=== PATIENT | female | born 1950 ===

== ENCOUNTER 2019-05-28 21:18 | Observation (INO) ==
[2019-05-28 22:30] LABS: Basophils % 0.6 % (0.0-0.8); Eosinophils # 0.2 10*3/uL (0.0-0.87); Eosinophils % 3.5 % (0.00-10.9); Hematocrit 35.4 VOL% (35.7-47.0); Hemoglobin 12.5 GM/DL (12.0-16.0); Immature Granulocytes % 0.5 %; Immature Granulocytes Absolute 0.03 #; Lymphocytes # 1.9 10*3/uL (1.4-4.0); Lymphocytes % 28.5 % (21.3-54.2); Mean Corpuscular HGB Conc 35.3 GM/DL (32-36); Mean Corpuscular Volume 94.9 FL (87-102); Mean Platelet Volume 10.9 FL (9.6-12.0); Monocytes % 6.9 % (1.7-12.7); Platelet Count 184 T/CUMM (130-400); Red Blood Count 3.73 MC/CUMM (3.8-5.5); Red Cell Distribution Width 12.3 % (9.3-17.3); White Blood Count 6.6 T/CUMM (4-12)
[2019-05-28 22:37] LABS: Bilirubin,Total 0.6 MG/DL (0.2-1.0); Calcium 8.2 MG/DL (8.5-10.1); Osmolality,Calculated 291.8 MOS/KG (273-304)
[2019-05-29 00:46] LABS: Platelet Estimate Normal
[2019-05-29 00:47] LABS: Hypochromasia 1+
[2019-05-29 02:28] LABS: Apearance,Urine CLEAR (Clear); Bilirubin,Urine Negative (Negative); Blood, Urine Negative (Negative); Glucose,Urine (UA) >=500 mg/dL (Negative); Ketones,Urine Negative (Negative); Nitrite,Urine Negative (Negative); Protein,Urine Negative; Squamous Epithelial Cell,Urine Occasional /HPF (0-10); Urine Color Straw (Yellow); Urine Specific Gravity 1.009 (1.001-1.035); Urine Urobilinogen < 2.0 EU/DL (0.2-1.0); WBC,Urine <1 /HPF (0-6)
[2019-05-29] MEDS ORDERED: GLUCAGON 1 MG VIAL IM PRN (02:58)
[2019-05-29] MEDS ORDERED: ACETAMINOPHEN 325 MG TABLET PO PRN (02:58)
[2019-05-29] MEDS ORDERED: DEXTROSE 50% 25 GM/50 ML VIAL IV PRN (02:58)
[2019-05-29] MEDS ORDERED: ONDANSETRON 4 MG/2 ML VIAL IV PRN (02:58)
[2019-05-29] MEDS: SODIUM CHLORIDE 0.9% 1,000 ML IV SCH ×2 (03:15→13:34)
[2019-05-29 05:58] LABS: Basophils % 0.7 % (0.0-0.8); Eosinophils # 0.2 10*3/uL (0.0-0.87); Eosinophils % 3.8 % (0.00-10.9); Hematocrit 32.8 VOL% (35.7-47.0); Hemoglobin 11.4 GM/DL (12.0-16.0); Immature Granulocytes % 0.5 %; Immature Granulocytes Absolute 0.03 #; Lymphocytes # 1.5 10*3/uL (1.4-4.0); Lymphocytes % 26.4 % (21.3-54.2); Mean Corpuscular HGB Conc 34.8 GM/DL (32-36); Mean Platelet Volume 10.8 FL (9.6-12.0); Monocytes % 8.7 % (1.7-12.7); Neutrophils % 59.9 % (38.7-73.9); Platelet Count 164 T/CUMM (130-400); Red Blood Count 3.49 MC/CUMM (3.8-5.5); Red Cell Distribution Width 12.3 % (9.3-17.3); White Blood Count 5.5 T/CUMM (4-12)
[2019-05-29 06:17] LABS: Calcium 8.1 MG/DL (8.5-10.1); Osmolality,Calculated 294.1 MOS/KG (273-304); Thyroid Stimulating Hormone 2.59 uIU/ml (0.358-3.74)
[2019-05-29] MEDS: GEMFIBROZIL 600 MG TABLET PO SCH ×2 (09:32→22:35)
[2019-05-29] MEDS: INSULIN LISPRO 100 UNIT/ML SUBCUT SCH ×6 (09:32→22:36)
[2019-05-29] MEDS: ENOXAPARIN 30 MG/0.3 ML SYRINGE SUBCUT SCH (09:32)
[2019-05-29] MEDS: GLIMEPIRIDE 4 MG TABLET PO SCH (09:32)
[2019-05-29] MEDS: FAMOTIDINE 20 MG TABLET PO SCH ×2 (09:33→22:35)
[2019-05-29] MEDS ORDERED: MAGNESIUM SULF RIDER 2 GM in PREMIX 1 EACH IV PRN (09:41)
[2019-05-29] MEDS ORDERED: MAGNESIUM SULF RIDER 4 GM in PREMIX 1 EACH IV PRN (09:41)
[2019-05-29] MEDS ORDERED: SENNA 8.6 MG TABLET PO PRN (11:28)
[2019-05-29] MEDS ORDERED: INSULIN LISPRO 100 UNIT/ML SUBCUT SCH (11:30)
[2019-05-29] MEDS ORDERED: SODIUM CHLORIDE 0.9% 1,000 ML IV ONE (16:05)
[2019-05-29] MEDS ORDERED: INSULIN GLARGINE 100 UNIT/ML SUBCUT SCH (17:00)
[2019-05-29] MEDS ORDERED: GABAPENTIN 100 MG CAPSULE PO SCH (21:00)
[2019-05-30] MEDS: SODIUM CHLORIDE 0.9% 1,000 ML IV SCH ×2 (00:13→07:54)
[2019-05-30 06:47] LABS: Osmolality,Calculated 286.1 MOS/KG (273-304)
[2019-05-30] MEDS: FAMOTIDINE 20 MG TABLET PO SCH (10:47)
[2019-05-30] MEDS: GLIMEPIRIDE 4 MG TABLET PO SCH (10:48)
[2019-05-30] MEDS: ENOXAPARIN 30 MG/0.3 ML SYRINGE SUBCUT SCH (10:48)
[2019-05-30] MEDS: GEMFIBROZIL 600 MG TABLET PO SCH (10:48)
[2019-05-30] MEDS: INSULIN LISPRO 100 UNIT/ML SUBCUT SCH ×4 (10:54→13:17)
[2019-05-30 16:13] VITALS: BP 123/54
[2019-06-03] MEDS ORDERED: ERGOCALCIFEROL 50,000 UNIT CAPSULE PO SCH (09:00)
== END 2019-05-30 17:08 | disposition home or self-care (01) ==
LOC: EDUNIT# → EDBD → EDSEX → N.ED 21:18 → N.EDINP 21:18 → N.5E 05-29 01:30
PROVIDERS: ADMIT Internal Medicine; ATTEND Internal Medicine

== ENCOUNTER 2020-08-12 08:10 | Inpatient (IN) ==
[2020-08-06 12:24] LABS: Basophils # 0.1 10*3/uL (0.0-0.2); Basophils % 0.7 % (0.0-0.8); Eosinophils # 0.3 10*3/uL (0.0-0.87); Eosinophils % 3.8 % (0.00-10.9); Hematocrit 31.4 VOL% (35.7-47.0); Hemoglobin 10.8 GM/DL (12.0-16.0); Immature Granulocytes % 0.6 %; Immature Granulocytes Absolute 0.05 #; Lymphocytes # 2.9 10*3/uL (1.4-4.0); Lymphocytes % 32.5 % (21.3-54.2); Mean Corpuscular HGB Conc 34.4 GM/DL (32-36); Mean Corpuscular Volume 96.3 FL (87-102); Mean Platelet Volume 10.3 FL (9.6-12.0); Monocytes % 7.6 % (1.7-12.7); Neutrophils % 54.8 % (38.7-73.9); Platelet Count 245 T/CUMM (130-400); Red Blood Count 3.26 MC/CUMM (3.8-5.5); Red Cell Distribution Width 13.7 % (9.3-17.3); White Blood Count 8.9 T/CUMM (4-12)
[2020-08-06 12:34] LABS: PT Patient Result 10.4 SECS (9.8-11.9)
[2020-08-06 12:56] LABS: Bilirubin,Total 0.8 MG/DL (0.2-1.0); Calcium 8.3 MG/DL (8.5-10.1); Osmolality,Calculated 293.3 MOS/KG (273-304); Potassium 3.6 MMOL/L (3.5-5.1); Total Protein 7.2 G/DL (6.4-8.3)
[~2020-08-12 08:10] MED LIST: HEPARIN 5,000 UNIT/1 ML VIAL ONE; LACTATED RINGERS 1,000 ML IV SCH; VANCOMYCIN INJ 1,000 MG in SODIUM CHLORIDE 0.9% 250 ML IV ONE
[2020-08-12] MEDS ORDERED: fentaNYL 250 MCG/5 ML VIAL ONE (08:30)
[2020-08-12] MEDS ORDERED: propofoL 200 MG/20 ML VIAL IV ONE (08:33)
[2020-08-12] MEDS ORDERED: ETOMIDATE 40 MG/20 ML VIAL IV ONE (08:33)
[2020-08-12] MEDS ORDERED: LIDOCAINE 2% 5 ML VIAL ONE (08:34)
[2020-08-12] MEDS ORDERED: ROCURONIUM 50 MG/5 ML VIAL IV ONE (08:34)
[2020-08-12] MEDS ORDERED: PHENYLEPHRINE 10 MG/1 ML VIAL IV ONE (08:36)
[2020-08-12] MEDS ORDERED: HEPARIN 10,000 UNIT/10 ML VIAL ONE (09:52)
[2020-08-12] MEDS ORDERED: NEOSTIGMINE 10 MG/10 ML VIAL ONE (10:22)
[2020-08-12] MEDS ORDERED: GLYCOPYRROLATE 0.4 MG/2 ML VIAL ONE (10:22)
[2020-08-12] MEDS ORDERED: HYDROmorphone 2 MG/1 ML VIAL IV PRN ×2 (11:46→12:11)
[2020-08-12] MEDS ORDERED: ONDANSETRON 4 MG/2 ML VIAL IV PRN ×2 (11:46→12:11)
[2020-08-12] MEDS ORDERED: SENNA 8.6 MG TABLET PO PRN (11:50)
[2020-08-12] MEDS ORDERED: SEVOFLURANE 1 UNIT/15 MINUTE INH ONE (11:57)
[2020-08-12] MEDS: LACTATED RINGERS 1,000 ML IV SCH ×2 (12:28→20:54)
[2020-08-12] MEDS: CALCIUM (CARBONATE) 600 MG TABLET PO SCH (16:50)
[2020-08-12] MEDS ORDERED: GABAPENTIN 600 MG TABLET PO SCH (21:00)
[2020-08-12] MEDS: GABAPENTIN 100 MG CAPSULE PO SCH (21:02)
[2020-08-12] MEDS: gemfibroziL 600 MG TABLET PO SCH (21:02)
[2020-08-12] MEDS: DOCUSATE SODIUM 100 MG CAPSULE PO SCH (21:08)
[2020-08-12] MEDS: FAMOTIDINE 20 MG TABLET PO SCH (21:08)
[2020-08-13] MEDS: ENOXAPARIN 30 MG/0.3 ML SYRINGE SUBCUT SCH ×2 (05:34→17:30)
[2020-08-13 05:55] LABS: Hematocrit 28.6 VOL% (35.7-47.0)
[2020-08-13 06:17] LABS: Calcium 8.8 MG/DL (8.5-10.1); Osmolality,Calculated 290.7 MOS/KG (273-304)
[2020-08-13] MEDS: CLOPIDOGREL 75 MG TABLET PO SCH (08:51)
[2020-08-13] MEDS: DOCUSATE SODIUM 100 MG CAPSULE PO SCH ×2 (08:51→21:16)
[2020-08-13] MEDS: CALCIUM (CARBONATE) 600 MG TABLET PO SCH ×2 (08:51→17:30)
[2020-08-13] MEDS: FAMOTIDINE 20 MG TABLET PO SCH ×2 (08:51→21:16)
[2020-08-13] MEDS: GLIMEPIRIDE 4 MG TABLET PO SCH (08:51)
[2020-08-13] MEDS: gemfibroziL 600 MG TABLET PO SCH ×2 (08:51→21:16)
[2020-08-13] MEDS: ASPIRIN CHEW 81 MG TABLET PO SCH (08:51)
[2020-08-13] MEDS: GABAPENTIN 100 MG CAPSULE PO SCH ×2 (08:52→21:16)
[2020-08-13] MEDS ORDERED: CLOPIDOGREL 75 MG TABLET PO SCH (09:00)
[2020-08-13] MEDS: INSULIN REGULAR 100 UNIT/ML SUBCUT SCH ×3 (11:53→21:17)
[2020-08-14] MEDS: ENOXAPARIN 30 MG/0.3 ML SYRINGE SUBCUT SCH ×2 (05:43→17:42)
[2020-08-14] MEDS: INSULIN REGULAR 100 UNIT/ML SUBCUT SCH ×4 (09:16→20:40)
[2020-08-14] MEDS: GLIMEPIRIDE 4 MG TABLET PO SCH ×2 (09:17→09:25)
[2020-08-14] MEDS: CALCIUM (CARBONATE) 600 MG TABLET PO SCH ×2 (09:18→17:39)
[2020-08-14] MEDS: ASPIRIN CHEW 81 MG TABLET PO SCH (09:18)
[2020-08-14] MEDS: gemfibroziL 600 MG TABLET PO SCH ×2 (09:18→20:41)
[2020-08-14] MEDS: GABAPENTIN 100 MG CAPSULE PO SCH ×2 (09:18→20:41)
[2020-08-14] MEDS: DOCUSATE SODIUM 100 MG CAPSULE PO SCH ×2 (09:18→20:40)
[2020-08-14] MEDS: FAMOTIDINE 20 MG TABLET PO SCH ×2 (09:19→20:40)
[2020-08-14] MEDS: CLOPIDOGREL 75 MG TABLET PO SCH (09:19)
[2020-08-14] MEDS: INSULIN GLARGINE 100 UNIT/ML SUBCUT SCH (17:41)
[2020-08-15] MEDS: ENOXAPARIN 30 MG/0.3 ML SYRINGE SUBCUT SCH ×2 (05:47→17:50)
[2020-08-15] MEDS: INSULIN REGULAR 100 UNIT/ML SUBCUT SCH ×4 (07:21→21:49)
[2020-08-15] MEDS: gemfibroziL 600 MG TABLET PO SCH ×2 (09:19→21:49)
[2020-08-15] MEDS: CALCIUM (CARBONATE) 600 MG TABLET PO SCH ×2 (09:19→17:50)
[2020-08-15] MEDS: DOCUSATE SODIUM 100 MG CAPSULE PO SCH ×2 (09:19→21:49)
[2020-08-15] MEDS: ASPIRIN CHEW 81 MG TABLET PO SCH (09:19)
[2020-08-15] MEDS: GABAPENTIN 100 MG CAPSULE PO SCH ×2 (09:19→21:49)
[2020-08-15] MEDS: GLIMEPIRIDE 4 MG TABLET PO SCH (09:19)
[2020-08-15] MEDS: FAMOTIDINE 20 MG TABLET PO SCH ×2 (09:21→21:49)
[2020-08-15] MEDS: CLOPIDOGREL 75 MG TABLET PO SCH (09:21)
[2020-08-15] MEDS: INSULIN GLARGINE 100 UNIT/ML SUBCUT SCH (17:51)
[2020-08-16] MEDS: ENOXAPARIN 30 MG/0.3 ML SYRINGE SUBCUT SCH ×2 (05:39→17:54)
[2020-08-16] MEDS: INSULIN REGULAR 100 UNIT/ML SUBCUT SCH ×4 (07:29→21:03)
[2020-08-16] MEDS: ASPIRIN CHEW 81 MG TABLET PO SCH (08:58)
[2020-08-16] MEDS: CALCIUM (CARBONATE) 600 MG TABLET PO SCH ×2 (08:58→17:09)
[2020-08-16] MEDS: gemfibroziL 600 MG TABLET PO SCH ×2 (08:58→21:02)
[2020-08-16] MEDS: DOCUSATE SODIUM 100 MG CAPSULE PO SCH ×2 (08:58→21:02)
[2020-08-16] MEDS: FAMOTIDINE 20 MG TABLET PO SCH ×2 (08:59→21:02)
[2020-08-16] MEDS: CLOPIDOGREL 75 MG TABLET PO SCH (08:59)
[2020-08-16] MEDS: GABAPENTIN 100 MG CAPSULE PO SCH ×2 (08:59→21:02)
[2020-08-16] MEDS: GLIMEPIRIDE 4 MG TABLET PO SCH (09:00)
[2020-08-16] MEDS: INSULIN GLARGINE 100 UNIT/ML SUBCUT SCH (17:10)
[2020-08-17] MEDS: ENOXAPARIN 30 MG/0.3 ML SYRINGE SUBCUT SCH (06:20)
[2020-08-17] MEDS: gemfibroziL 600 MG TABLET PO SCH (09:01)
[2020-08-17] MEDS: CLOPIDOGREL 75 MG TABLET PO SCH (09:02)
[2020-08-17] MEDS: DOCUSATE SODIUM 100 MG CAPSULE PO SCH (09:02)
[2020-08-17] MEDS: FAMOTIDINE 20 MG TABLET PO SCH (09:02)
[2020-08-17] MEDS: ASPIRIN CHEW 81 MG TABLET PO SCH (09:02)
[2020-08-17] MEDS: GLIMEPIRIDE 4 MG TABLET PO SCH (09:02)
[2020-08-17] MEDS: GABAPENTIN 100 MG CAPSULE PO SCH (09:02)
[2020-08-17] MEDS: CALCIUM (CARBONATE) 600 MG TABLET PO SCH ×2 (09:02→16:50)
[2020-08-17] MEDS: INSULIN REGULAR 100 UNIT/ML SUBCUT SCH ×3 (09:02→16:15)
[2020-08-17 15:38] VITALS: BP 123/53
[2020-08-17] MEDS: INSULIN GLARGINE 100 UNIT/ML SUBCUT SCH (16:50)
== END 2020-08-17 17:18 | disposition home health service (06) | DRG 253 ==
LOC: N.OR 08:10 → N.SDSINP 08:12 → N.3E 12:46
PROVIDERS: ADMIT Surgery; ATTEND Surgery

== ENCOUNTER 2020-09-18 19:09 | Observation (INO) ==
[2020-09-18] MEDS ORDERED: SODIUM CHLORIDE 0.9% 1,000 ML IV STA (19:59)
[2020-09-18] MEDS ORDERED: GLUCAGON 1 MG VIAL IM PRN (21:49)
[2020-09-18] MEDS ORDERED: ONDANSETRON 4 MG/2 ML VIAL IV PRN (21:49)
[2020-09-18] MEDS ORDERED: DEXTROSE 50% 25 GM/50 ML VIAL IV PRN ×2 (21:49)
[2020-09-18] MEDS ORDERED: ACETAMINOPHEN 325 MG TABLET PO PRN (21:49)
[2020-09-18] MEDS ORDERED: ENOXAPARIN 40 MG/0.4 ML SYRINGE SUBCUT SCH (22:00)
[2020-09-19 06:23] LABS: Basophils % 0.6 % (0.0-0.8); Eosinophils # 0.2 10*3/uL (0.0-0.87); Eosinophils % 3.6 % (0.00-10.9); Hematocrit 30.4 VOL% (35.7-47.0); Hemoglobin 10.4 GM/DL (12.0-16.0); Immature Granulocytes % 0.5 %; Immature Granulocytes Absolute 0.03 #; Lymphocytes # 1.8 10*3/uL (1.4-4.0); Lymphocytes % 27.5 % (21.3-54.2); Mean Corpuscular HGB Conc 34.2 GM/DL (32-36); Mean Corpuscular Volume 96.5 FL (87-102); Mean Platelet Volume 10.2 FL (9.6-12.0); Monocytes % 7.1 % (1.7-12.7); Neutrophils % 60.7 % (38.7-73.9); Platelet Count 207 T/CUMM (130-400); Red Blood Count 3.15 MC/CUMM (3.8-5.5); Red Cell Distribution Width 13.2 % (9.3-17.3); White Blood Count 6.6 T/CUMM (4-12)
[2020-09-19 07:10] LABS: Albumin 2.4 G/DL (3.4-5.0); Bilirubin,Total 0.7 MG/DL (0.2-1.0); Osmolality,Calculated 285.5 MOS/KG (273-304); Potassium 3.6 MMOL/L (3.5-5.1); Total Protein 6.3 G/DL (5.0-7.5)
[2020-09-19] MEDS ORDERED: gemfibroziL 600 MG TABLET PO SCH (07:30)
[2020-09-19] MEDS: INSULIN REGULAR 100 UNIT/ML SUBCUT SCH ×2 (08:40→13:10)
[2020-09-19] MEDS ORDERED: FAMOTIDINE 20 MG TABLET PO SCH (09:00)
[2020-09-19] MEDS ORDERED: CLOPIDOGREL 75 MG TABLET PO SCH (09:00)
[2020-09-19] MEDS ORDERED: GABAPENTIN 100 MG CAPSULE PO SCH (09:00)
[2020-09-19] MEDS ORDERED: CALCIUM CARBONATE CHEW 500 MG TABLET PO SCH (09:00)
[2020-09-19] MEDS ORDERED: PANTOPRAZOLE 40 MG TABLET PO SCH (09:00)
[2020-09-19 11:23] VITALS: BP 140/45
[2020-09-19] MEDS ORDERED: INSULIN GLARGINE 100 UNIT/ML SUBCUT SCH (17:00)
[2020-09-19] MEDS ORDERED: CALCIUM (CARBONATE) 500 MG TABLET PO SCH (21:00)
[2020-09-20] MEDS ORDERED: GLIMEPIRIDE 4 MG TABLET PO SCH (07:30)
== END 2020-09-19 13:10 | disposition home or self-care (01) ==
LOC: EDBD → EDUNIT# → N.EDINP 19:09 → N.ED 19:09 → N.EDINP 23:15 → N.5E 23:29
PROVIDERS: ADMIT Internal Medicine; ATTEND Internal Medicine

== ENCOUNTER 2020-09-24 23:11 | Observation (INO) ==
[2020-09-24 23:56] LABS: Basophils # 0.1 10*3/uL (0.0-0.2); Basophils % 0.8 % (0.0-0.8); Eosinophils # 0.2 10*3/uL (0.0-0.87); Eosinophils % 3.2 % (0.00-10.9); Hematocrit 31.2 VOL% (35.7-47.0); Hemoglobin 10.7 GM/DL (12.0-16.0); Immature Granulocytes % 0.6 %; Immature Granulocytes Absolute 0.04 #; Lymphocytes # 1.3 10*3/uL (1.4-4.0); Lymphocytes % 20.3 % (21.3-54.2); Mean Corpuscular HGB Conc 34.3 GM/DL (32-36); Mean Corpuscular Volume 98.1 FL (87-102); Mean Platelet Volume 10.1 FL (9.6-12.0); Monocytes % 8.6 % (1.7-12.7); Neutrophils % 66.5 % (38.7-73.9); Platelet Count 212 T/CUMM (130-400); Red Blood Count 3.18 MC/CUMM (3.8-5.5); Red Cell Distribution Width 13.4 % (9.3-17.3); White Blood Count 6.6 T/CUMM (4-12)
[2020-09-25 00:09] LABS: PT Patient Result 10.9 SECS (9.8-11.9); Partial Thromboplastin Time 24.5 SECS (23.9-33.8)
[2020-09-25 00:16] LABS: Alanine Aminotransferase 20 U/L (13-56); Alkaline Phosphatase 129 U/L (45-117); Aspartate Amino Transferase 23 U/L (0-37); Bilirubin,Total < 0.39 MG/DL (0.2-1.0); Blood Urea Nitrogen 33 MG/DL (7-18); Calcium 8.1 MG/DL (8.5-10.1); Carbon Dioxide 23 MMOL/L (21-32); Estimated Glom Filtration Rate 13 ML/MIN; Glucose 328 MG/DL (74-106); Sodium 136 MMOL/L (136-145); Total Protein 7.3 G/DL (5.0-7.5)
[2020-09-25] MEDS ORDERED: SODIUM CHLORIDE 0.9% 1,000 ML IV STA (00:20)
[2020-09-25] MEDS ORDERED: DEXTROSE 50% 25 GM/50 ML VIAL IV PRN (01:30)
[2020-09-25] MEDS ORDERED: GLUCAGON 1 MG VIAL IM PRN (01:30)
[2020-09-25] MEDS ORDERED: NICOTINE 21 MG/24 HR PATCH TRANSDERM PRN (01:30)
[2020-09-25] MEDS ORDERED: ONDANSETRON 4 MG/2 ML VIAL IV PRN (01:30)
[2020-09-25] MEDS ORDERED: MORPHINE 4 MG/1 ML VIAL IV PRN (01:30)
[2020-09-25] MEDS: SODIUM CHLORIDE 0.9% 1,000 ML IV SCH ×3 (02:15→17:46)
[2020-09-25] MEDS: INSULIN REGULAR 100 UNIT/ML SUBCUT SCH ×6 (04:04→23:22)
[2020-09-25 06:40] LABS: Basophils % 0.6 % (0.0-0.8); Eosinophils # 0.3 10*3/uL (0.0-0.87); Eosinophils % 4.1 % (0.00-10.9); Hematocrit 31.2 VOL% (35.7-47.0); Hemoglobin 10.5 GM/DL (12.0-16.0); Immature Granulocytes % 0.3 %; Immature Granulocytes Absolute 0.02 #; Lymphocytes % 32.1 % (21.3-54.2); Mean Corpuscular HGB Conc 33.7 GM/DL (32-36); Mean Corpuscular Volume 99.4 FL (87-102); Mean Platelet Volume 10.5 FL (9.6-12.0); Monocytes % 9.1 % (1.7-12.7); Neutrophils % 53.8 % (38.7-73.9); Platelet Count 189 T/CUMM (130-400); Red Blood Count 3.14 MC/CUMM (3.8-5.5); Red Cell Distribution Width 13.3 % (9.3-17.3); White Blood Count 6.2 T/CUMM (4-12)
[2020-09-25 06:59] LABS: Alanine Aminotransferase 19 U/L (13-56); Albumin 2.6 G/DL (3.4-5.0); Alkaline Phosphatase 126 U/L (45-117); Aspartate Amino Transferase 23 U/L (0-37); Bilirubin,Total < 0.39 MG/DL (0.2-1.0); Blood Urea Nitrogen 31 MG/DL (7-18); Calcium 8.4 MG/DL (8.5-10.1); Carbon Dioxide 18 MMOL/L (21-32); Estimated Glom Filtration Rate 16 ML/MIN; Glucose 184 MG/DL (74-106); Osmolality,Calculated 288.5 MOS/KG (273-304); Potassium 3.4 MMOL/L (3.5-5.1); Sodium 139 MMOL/L (136-145); Total Protein 6.6 G/DL (5.0-7.5)
[2020-09-25] MEDS ORDERED: POTASSIUM CHLORIDE 20 MEQ/15 ML UDCUP PO ONE ×2 (08:46→11:00)
[2020-09-25] MEDS ORDERED: CLOPIDOGREL 75 MG TABLET PO SCH (11:00)
[2020-09-25] MEDS ORDERED: GLIMEPIRIDE 4 MG TABLET PO SCH (11:00)
[2020-09-25] MEDS: GABAPENTIN 100 MG CAPSULE PO SCH ×3 (11:18→21:00)
[2020-09-25 13:28] LABS: Bilirubin,Urine Negative (Negative); Blood, Urine Small mg/dL (Negative); Glucose,Urine (UA) >=500 mg/dL (Negative); Hyaline Casts,Urine 1 /LPF (0-3); Ketones,Urine Negative (Negative); Mucus,Urine Occasional /LPF (Occasional); Nitrite,Urine Negative (Negative); Protein,Urine Negative; RBC,Urine <1 /HPF (0-4); Squamous Epithelial Cell,Urine Occasional /HPF (0-10); Urine Appearance CLEAR (Clear); Urine Color Straw (Yellow); Urine Specific Gravity 1.009 (1.001-1.035); Urine Urobilinogen < 2.0 EU/DL (0.2-1.0); WBC,Urine <1 /HPF (0-6)
[2020-09-25] MEDS ORDERED: INSULIN GLARGINE 100 UNIT/ML SUBCUT SCH (17:00)
[2020-09-26 03:31] LABS: Basophils % 0.5 % (0.0-0.8); Eosinophils # 0.3 10*3/uL (0.0-0.87); Eosinophils % 4.8 % (0.00-10.9); Hematocrit 29.9 VOL% (35.7-47.0); Hemoglobin 10.1 GM/DL (12.0-16.0); Immature Granulocytes % 0.6 %; Immature Granulocytes Absolute 0.04 #; Lymphocytes # 2.1 10*3/uL (1.4-4.0); Lymphocytes % 32.4 % (21.3-54.2); Mean Corpuscular HGB Conc 33.8 GM/DL (32-36); Mean Corpuscular Volume 98.7 FL (87-102); Mean Platelet Volume 10.3 FL (9.6-12.0); Monocytes % 8.4 % (1.7-12.7); Neutrophils % 53.3 % (38.7-73.9); Platelet Count 190 T/CUMM (130-400); Red Blood Count 3.03 MC/CUMM (3.8-5.5); Red Cell Distribution Width 13.5 % (9.3-17.3); White Blood Count 6.4 T/CUMM (4-12)
[2020-09-26 03:31] LABS: Allen Test Positive; Pt O2 Delivery Device Ventilator
[2020-09-26 03:32] LABS: ABG Base Excess -4.4 MMOL/L (-2.5-2.5); ABG HCO3 20.7 MMOL/L (20-26); ABG Oxygen Saturation 96.1 % (95-100); ABG PCO2 34.3 MM HG (35-48); ABG PH 7.375 (7.35-7.45); ABG PO2 76.6 MM HG (80-95); ABG TCO2 18.3 MMOL/L (23-27)
[2020-09-26 03:54] LABS: Albumin 2.4 G/DL (3.4-5.0); Bilirubin,Total 0.5 MG/DL (0.2-1.0); Calcium 7.9 MG/DL (8.5-10.1); Osmolality,Calculated 284.3 MOS/KG (273-304); Potassium 4.1 MMOL/L (3.5-5.1); Total Protein 6.1 G/DL (5.0-7.5)
[2020-09-26 03:55] LABS: Uric Acid 5.2 MG/DL (2.6-6.0)
[2020-09-26] MEDS: INSULIN REGULAR 100 UNIT/ML SUBCUT SCH ×2 (05:36→12:03)
[2020-09-26] MEDS ORDERED: GLIMEPIRIDE 2 MG TABLET PO SCH (08:00)
[2020-09-26] MEDS: SODIUM CHLORIDE 0.9% 1,000 ML IV SCH ×2 (08:55→13:08)
[2020-09-26 11:37] VITALS: BP 121/58
[2020-09-26] MEDS: GABAPENTIN 100 MG CAPSULE PO SCH (12:05)
== END 2020-09-26 14:05 | disposition home or self-care (01) ==
LOC: EDBD → EDUNIT# → N.EDINP 23:11 → N.ED 23:11 → SUATTDRO 09-25 01:30 → N.EDINP 09-25 03:14 → N.5E 09-25 03:36
PROVIDERS: ADMIT Internal Medicine; ATTEND Internal Medicine

== ENCOUNTER 2021-01-16 19:11 | Inpatient (IN) ==
[2021-01-16 22:48] LABS: Basophils # 0.1 10*3/uL (0.0-0.2); Basophils % 0.7 % (0.0-0.8); Eosinophils # 0.4 10*3/uL (0.0-0.87); Eosinophils % 4.1 % (0.00-10.9); Hematocrit 34.3 VOL% (35.7-47.0); Hemoglobin 11.8 GM/DL (12.0-16.0); Immature Granulocytes % 0.4 %; Immature Granulocytes Absolute 0.04 #; Lymphocytes # 2.1 10*3/uL (1.4-4.0); Mean Corpuscular HGB Conc 34.4 GM/DL (32-36); Mean Corpuscular Volume 97.4 FL (87-102); Mean Platelet Volume 10.5 FL (9.6-12.0); Monocytes % 6.9 % (1.7-12.7); Neutrophils % 64.9 % (38.7-73.9); Platelet Count 208 T/CUMM (130-400); Red Blood Count 3.52 MC/CUMM (3.8-5.5); Red Cell Distribution Width 12.7 % (9.3-17.3); White Blood Count 9.1 T/CUMM (4-12)
[2021-01-16 22:57] LABS: INR 0.9; PT Patient Result 10.6 SECS (10.5-12.0); Partial Thromboplastin Time 23.5 SECS (23.9-33.8)
[2021-01-16 23:02] LABS: Calcium 8.5 MG/DL (8.5-10.1); Osmolality,Calculated 297.7 MOS/KG (273-304); Potassium 4.1 MMOL/L (3.5-5.1)
[2021-01-16] MEDS ORDERED: GLUCAGON 1 MG VIAL IM PRN ×2 (23:05)
[2021-01-16] MEDS ORDERED: DEXTROSE 50% 25 GM/50 ML VIAL IV PRN ×2 (23:05)
[2021-01-16] MEDS ORDERED: ONDANSETRON 4 MG/2 ML VIAL IV PRN (23:05)
[2021-01-16] MEDS ORDERED: guaiFENesin/DM ER 600-30 MG TABLET PO PRN (23:05)
[2021-01-16] MEDS ORDERED: ACETAMINOPHEN 325 MG TABLET PO PRN (23:05)
[2021-01-16] MEDS ORDERED: NICOTINE 21 MG/24 HR PATCH TRANSDERM PRN (23:05)
[2021-01-16] MEDS ORDERED: ZALEPLON 5 MG CAPSULE PO PRN (23:05)
[2021-01-16] MEDS ORDERED: DOCUSATE SODIUM 100 MG CAPSULE PO PRN (23:05)
[2021-01-16] MEDS ORDERED: hydrALAZINE 20 MG/1 ML VIAL IV PRN (23:05)
[2021-01-16] MEDS ORDERED: diphenhydrAMINE CAP 25 MG CAPSULE PO PRN (23:05)
[2021-01-16] MEDS ORDERED: ENOXAPARIN 60 MG/0.6 ML SYRINGE SUBCUT ONE (23:06)
[2021-01-17] MEDS ORDERED: TICAGRELOR 90 MG TABLET PO ONE (00:19)
[2021-01-17 02:40] LABS: Basophils # 0.1 10*3/uL (0.0-0.2); Basophils % 0.6 % (0.0-0.8); Eosinophils # 0.4 10*3/uL (0.0-0.87); Eosinophils % 4.2 % (0.00-10.9); Hematocrit 30.6 VOL% (35.7-47.0); Immature Granulocytes % 0.5 %; Immature Granulocytes Absolute 0.05 #; Lymphocytes # 2.5 10*3/uL (1.4-4.0); Lymphocytes % 23.3 % (21.3-54.2); Mean Corpuscular HGB Conc 35.9 GM/DL (32-36); Mean Corpuscular Volume 95.6 FL (87-102); Mean Platelet Volume 10.4 FL (9.6-12.0); Monocytes % 7.3 % (1.7-12.7); Neutrophils % 64.1 % (38.7-73.9); Platelet Count 188 T/CUMM (130-400); Red Cell Distribution Width 12.7 % (9.3-17.3); White Blood Count 10.5 T/CUMM (4-12)
[2021-01-17 03:12] LABS: Risk Ratio 6.31; VLDL Cholesterol 107.6 MG/DL
[2021-01-17] MEDS ORDERED: MAGNESIUM SULF RIDER 2 GM/50 ML PREMIX IV ONE (08:14)
[2021-01-17] MEDS: PANTOPRAZOLE 40 MG TABLET PO SCH (09:05)
[2021-01-17] MEDS: INSULIN LISPRO 100 UNIT/ML SUBCUT SCH ×3 (09:05→16:05)
[2021-01-17] MEDS: gemfibroziL 600 MG TABLET PO SCH ×2 (09:05→22:21)
[2021-01-17] MEDS: GABAPENTIN 100 MG CAPSULE PO SCH ×2 (13:42→22:21)
[2021-01-17] MEDS ORDERED: hydrALAZINE 20 MG/1 ML VIAL IV PRN (15:01)
[2021-01-17] MEDS ORDERED: INSULIN GLARGINE 100 UNIT/ML SUBCUT SCH (17:00)
[2021-01-17] MEDS ORDERED: ENOXAPARIN 30 MG/0.3 ML SYRINGE SUBCUT SCH (21:00)
[2021-01-17] MEDS: ASPIRIN EC 325 MG TABLET PO SCH (22:21)
[2021-01-17] MEDS: OLOPATADINE 0.1% OPH SOLN 5 ML BOTTLE BOTH EYES SCH (22:22)
[2021-01-17] MEDS: ENOXAPARIN 60 MG/0.6 ML SYRINGE SUBCUT SCH (22:22)
[2021-01-18] MEDS: INSULIN LISPRO 100 UNIT/ML SUBCUT SCH ×5 (02:44→20:59)
[2021-01-18 05:53] LABS: Basophils # 0.1 10*3/uL (0.0-0.2); Basophils % 0.7 % (0.0-0.8); Eosinophils # 0.5 10*3/uL (0.0-0.87); Eosinophils % 5.9 % (0.00-10.9); Hematocrit 30.4 VOL% (35.7-47.0); Hemoglobin 10.4 GM/DL (12.0-16.0); Immature Granulocytes % 0.6 %; Immature Granulocytes Absolute 0.05 #; Lymphocytes # 2.1 10*3/uL (1.4-4.0); Mean Corpuscular HGB Conc 34.2 GM/DL (32-36); Mean Corpuscular Volume 97.7 FL (87-102); Mean Platelet Volume 10.5 FL (9.6-12.0); Neutrophils % 58.8 % (38.7-73.9); Platelet Count 184 T/CUMM (130-400); Red Blood Count 3.11 MC/CUMM (3.8-5.5); White Blood Count 8.5 T/CUMM (4-12)
[2021-01-18 06:11] LABS: Albumin 2.8 G/DL (3.4-5.0); Bilirubin,Total 1.6 MG/DL (0.20-1.00); Calcium 8.7 MG/DL (8.5-10.1); Osmolality,Calculated 288.5 MOS/KG (273-304); Total Protein 6.7 G/DL (6.4-8.2)
[2021-01-18] MEDS ORDERED: DIAZEPAM 5 MG TABLET PO ONE (07:55)
[2021-01-18] MEDS ORDERED: diphenhydrAMINE CAP 25 MG CAPSULE PO ONE (07:55)
[2021-01-18] MEDS: SODIUM CHLORIDE 0.45% 1,000 ML IV SCH ×2 (09:44→16:05)
[2021-01-18] MEDS: OLOPATADINE 0.1% OPH SOLN 5 ML BOTTLE BOTH EYES SCH ×2 (09:45→21:00)
[2021-01-18] MEDS: ASPIRIN EC 325 MG TABLET PO SCH (09:45)
[2021-01-18] MEDS: PANTOPRAZOLE 40 MG TABLET PO SCH (09:45)
[2021-01-18] MEDS ORDERED: LIDOCAINE 1% 20 ML VIAL ONE (10:34)
[2021-01-18] MEDS: GABAPENTIN 100 MG CAPSULE PO SCH ×2 (11:59→21:00)
[2021-01-18] MEDS ORDERED: HYDROmorphone 2 MG/1 ML VIAL ONE (12:00)
[2021-01-18] MEDS ORDERED: MIDAZOLAM 2 MG/2 ML VIAL ONE (12:00)
[2021-01-18] MEDS ORDERED: ENOXAPARIN 60 MG/0.6 ML SYRINGE ONE (12:32)
[2021-01-18] MEDS ORDERED: CLOPIDOGREL 300 MG TABLET ONE ×2 (12:55→12:57)
[2021-01-18] MEDS ORDERED: GLUCAGON 1 MG VIAL IM PRN (16:52)
[2021-01-18] MEDS ORDERED: DEXTROSE 50% 25 GM/50 ML VIAL IV PRN (16:52)
[2021-01-18] MEDS ORDERED: INSULIN GLARGINE 100 UNIT/ML SUBCUT SCH (17:00)
[2021-01-18] MEDS ORDERED: SODIUM CHLORIDE 0.9% 500 ML IV ONE (19:49)
[2021-01-18] MEDS ORDERED: ROSUVASTATIN 20 MG TABLET PO SCH (21:00)
[2021-01-18] MEDS: ENOXAPARIN 60 MG/0.6 ML SYRINGE SUBCUT SCH (21:00)
[2021-01-19] MEDS ORDERED: SODIUM CHLORIDE 0.9% 500 ML IV ONE (00:11)
[2021-01-19] MEDS: SODIUM CHLORIDE 0.45% 1,000 ML IV SCH ×2 (00:32→07:35)
[2021-01-19 05:35] LABS: Basophils % 0.4 % (0.0-0.8); Eosinophils # 0.4 10*3/uL (0.0-0.87); Eosinophils % 4.7 % (0.00-10.9); Hematocrit 29.7 VOL% (35.7-47.0); Hemoglobin 10.1 GM/DL (12.0-16.0); Immature Granulocytes % 0.5 %; Immature Granulocytes Absolute 0.04 #; Lymphocytes % 12.3 % (21.3-54.2); Mean Corpuscular Volume 97.4 FL (87-102); Mean Platelet Volume 10.6 FL (9.6-12.0); Monocytes % 6.3 % (1.7-12.7); Neutrophils % 75.8 % (38.7-73.9); Platelet Count 171 T/CUMM (130-400); Red Blood Count 3.05 MC/CUMM (3.8-5.5); Red Cell Distribution Width 13.1 % (9.3-17.3); White Blood Count 7.7 T/CUMM (4-12)
[2021-01-19 06:08] LABS: Albumin 2.7 G/DL (3.4-5.0); Bilirubin,Total 0.8 MG/DL (0.20-1.00); Calcium 7.7 MG/DL (8.5-10.1); Osmolality,Calculated 282.5 MOS/KG (273-304); Potassium 3.8 MMOL/L (3.5-5.1); Total Protein 6.6 G/DL (6.4-8.2)
[2021-01-19 06:36] LABS: CKMB % 7.1 %; Calcium 7.6 MG/DL (8.5-10.1); Osmolality,Calculated 282.5 MOS/KG (273-304); Potassium 3.8 MMOL/L (3.5-5.1)
[2021-01-19] MEDS ORDERED: CLOPIDOGREL 75 MG TABLET PO SCH (09:00)
[2021-01-19] MEDS ORDERED: ASPIRIN CHEW 81 MG TABLET PO SCH (09:00)
[2021-01-19 09:20] LABS: ABG Base Excess -7.1 MMOL/L (-2.5-2.5); ABG HCO3 18.6 MMOL/L (20-26); ABG PCO2 31.6 MM HG (35-48); ABG PH 7.353 (7.35-7.45); ABG PO2 85.4 MM HG (80-95); ABG TCO2 16.1 MMOL/L (23-27); Allen Test Positive; Pt O2 Delivery Device Room Air
[2021-01-19] MEDS: PANTOPRAZOLE 40 MG TABLET PO SCH (09:33)
[2021-01-19] MEDS: OLOPATADINE 0.1% OPH SOLN 5 ML BOTTLE BOTH EYES SCH (09:33)
[2021-01-19] MEDS: INSULIN LISPRO 100 UNIT/ML SUBCUT SCH ×2 (09:38→11:58)
[2021-01-19] MEDS ORDERED: carvediloL 3.125 MG TABLET PO SCH (11:00)
[2021-01-19] MEDS ORDERED: NITROGLYCERIN SL 0.4 MG TABLET SL PRN (11:02)
[2021-01-19] MEDS: GABAPENTIN 100 MG CAPSULE PO SCH (12:17)
[2021-01-19] MEDS ORDERED: EYE WASH SOLN 118 ML BOTTLE BOTH EYES ONE (13:32)
[2021-01-19 16:51] VITALS: BP 109/57
== END 2021-01-19 16:45 | disposition home health service (06) | DRG 247 ==
LOC: N.TELES 22:04
PROVIDERS: ADMIT Hospitalist; ATTEND Hospitalist